=== PATIENT | male | born 1940 | race Caucasian/White ===

== ENCOUNTER → 2018-06-27 | Emergency (ER) | payer OTHER ==
[~2018-06-27] VITALS: Ht 175.3 cm; Wt 79.4 kg
[~2018-06-27] MED LIST: ADVAIR 100-501 EACH IH; AMOX1TAB5 PO; CYCLOSPORINE25 M1 PO; EPIVIR HBV100 MG PO; FAMOTIDINE10 MG PO; KEPPRA500 MG; PROAIR HFA8.5 GM IH; SODIUM BICARBO325 MG PO; VASOTEC2.5 MG PO
== END | disposition home or self-care (01) ==
LOC: ER 08:30
DX: K42.9 Umbilical hernia without obstruction or gangrene (principal); K57.92 Diverticulitis of intestine, part unspecified, without perforation or abscess without bleeding